=== PATIENT | female | born 1980 | race Caucasian/White ===

== ENCOUNTER 2018-07-20 09:36 | Day surgery (SDC) | payer OTHER ==
[2018-07-18 14:35] VITALS: BMI 31.6
[2018-07-20] MEDS ORDERED: ONDANSETRON 4 MG/2 ML VIAL IVPUSH PRN (10:45)
[2018-07-20] MEDS ORDERED: LACTATED RINGERS SOLUTION 1,000 ML IV SCH (10:45)
[2018-07-20] MEDS ORDERED: BUPIVACAINE HCL/PF 0.5% (5MG/ML) 10 ML VIAL ONE (11:06)
--- NOTE | 2018-07-20 11:59 | HP ---
History & Physical Update - History History: No Change - Physical Physical: No Change - Assessment Assessment: No Change - Plan Plan: No Change (H & P done on 07/13/18)
[2018-07-20] MEDS ORDERED: MIDAZOLAM HCL 2 MG/2 ML SINGLE DOSE VIAL ONE (12:00)
[2018-07-20] MEDS ORDERED: PROPOFOL 20 ML ONE (12:05)
[2018-07-20] MEDS ORDERED: ceFAZolin SODIUM 1 GM VIAL IVPB ONE (12:15)
[2018-07-20] MEDS ORDERED: LIDOCAINE HCL 2% JELLY (5 ML/TUBE) ONE (12:21)
[2018-07-20] MEDS ORDERED: DEXAMETHASONE SOD PHOSPHATE 4 MG/1 ML VIAL ONE (12:21)
[2018-07-20] MEDS ORDERED: LIDOCAINE HCL/PF 2% SDV 5ML VIAL ONE (12:21)
[2018-07-20] MEDS ORDERED: ceFAZolin SODIUM 1 GM VIAL ONE (12:21)
[2018-07-20] MEDS ORDERED: SODIUM CHLORIDE 0.9% P/F 10 ML VIAL IJ ONE (12:21)
[2018-07-20] MEDS ORDERED: BUPIVACAINE HCL/PF 0.5% (5MG/ML) 10 ML VIAL IJ ONE (12:44)
[2018-07-20] MEDS ORDERED: NEOSTIGMINE METHYLSULFATE 0.5 MG/ML - 10 ML MDV ONE (13:08)
[2018-07-20] MEDS ORDERED: GLYCOPYRROLATE 0.2 MG/1 ML VIAL ONE (13:08)
--- NOTE | 2018-07-20 13:22 | OP ---
Operative Note - Note: Operative Date: 07/20/18 Pre-Operative Diagnosis: Chronic cholecystitis with cholelithiasis Operation: Laparoscopic cholecystectomy Findings: GB with stones Post-Operative Diagnosis: Same as Pre-op Surgeon: Joe Almaraz Freight Caller: Dominga Johnson Anesthesia: General Specimens Removed: gallbladder Estimated Blood Loss (mls): 5 Operative Report Dictated: Yes
--- NOTE | 2018-07-20 14:06 | SURG ---
Surgery [employer] Officer Note [employer] Officer: Dominga Johnson PA-C Date of Service: 07/20/18 Diagnosis: Chronic cholecystitis with cholelithiasis Procedure: Laparoscopic cholecystectomy I was present for the entirety of the operative procedure. For further detail, please refer to operative report. Visit type - Case Type Case Type: Scheduled - Emergency Emergency Visit: No - New patient This patient is new to me today: Yes Date on this admission: 07/20/18
[2018-07-20] MEDS ORDERED: oxyCODONE HCL 5 MG TABLET PO PRN (16:35)
[2018-07-20 16:49] VITALS: TEMP 97.9
[2018-07-20] MEDS ORDERED: oxyCODONE HCL 5 MG TABLET ONE (17:22)
[2018-07-20] MEDS ORDERED: oxyCODONE HCL 5 MG TABLET PO ONE (17:45)
[2018-07-20 18:20] VITALS: BP 106/66; PULSE 60
--- NOTE | 2018-07-21 06:12 | OP ---
DATE OF OPERATION: 07/20/2018 PROCEDURE: Laparoscopic cholecystectomy. PREOPERATIVE DIAGNOSIS: Chronic cholecystitis with cholelithiasis. POSTOPERATIVE DIAGNOSIS: Chronic cholecystitis with cholelithiasis. SURGEON: Joe Almaraz MD TRAFFIC ASSISTANT: Dominga Johnson RPA ANESTHESIA: General endotracheal. FINDINGS AND PROCEDURE: This is a 37-year-old female who presents with chronic right upper quadrant pain radiating to the back aggravated by fatty meals. Preoperative ultrasound revealed patient with gallstones. On physical exam patient has no right upper quadrant tenderness at that time. So patient was advised elective laparoscopic cholecystectomy and consent was obtained after discussing the risks, benefits and alternatives to the procedure. Patient was brought to the operating room and placed in the supine position. General endotracheal anesthesia was administered. The abdomen was prepped and draped in the usual sterile fashion. Using 0.5% Marcaine local anesthesia was administered to the proposed incision sites. The peritoneal cavity was entered using the Optiview technique. via a 5-mm umbilical incision. Using a 5-mm, 30-degree scope inserted in a 5-mm optical port pneumoperitoneum was established. The peritoneal cavity was carefully inspected and was noted to be free of inadvertent injury. The patient was then placed in reverse Trendelenburg left side down position. An 11-mm port was inserted at the subxiphoid region and then two 5-mm ports were inserted at the right subcostal region at the midclavicular and anterior axillary lines. The fundus was identified and grasped and retracted superiorly. The infundibulum was grasped and retracted inferolaterally to expose the triangle of Calot. The visceral peritoneum covering the triangle was scored using the hook dissector connected to monopolar cautery. Further dissection using Maryland dissector was done until the cystic duct was identified as well as the cystic artery. A window was made using the Maryland dissector behind the cystic artery and at the area between the liver bed and the gallbladder wall to establish the critical view of safety. The cystic duct was clipped at 3 points followed by transection leaving 2 clips at the cystic duct stump. The cystic artery was branching before entering the gallbladder, was clipped at each 2 branches followed by transection using the hook dissector leaving 2 clips at both branches of the cystic artery stumps. The gallbladder was then resected from its bed in antegrade fashion using the hook dissector. After this was done the gallbladder was placed in an Endobag and extracted via the subxiphoid incision. The gallbladder bed was again inspected and was noted to be free of active bleeding. The small amount of blood in the Rodriguez pouch was suctioned. The pneumoperitoneum was evacuated and the ports were removed. Wounds were closed with subcuticular Biosyn 4-0 sutures reinforced with Dermabond. Patient was successfully extubated and transferred to the postanesthesia care unit in satisfactory condition. Estimated blood loss was about 5 mL. Wound class clean, contaminated. The patient received 2 g of Ancef prior to the start of the procedure. Jeremías [id number] MTDD
--- NOTE | 2018-07-24 17:04 | PATH ---
Surgical Pathology Report Patient Name: HEENA FISCHER [facility]. Rec. #: [id number] /Age/Gender: 1980 (Age: 37) / F Account: [id number] Location: [facility] SURGICAL Taken: 07/20/2018 Received: 07/20/2018 Reported: 07/24/2018 Physicians: Joe Almaraz M.D. Specimen(s) Received GALLBLADDER Clinical History Cholecystitis, cholelithiasis Final Diagnosis GALLBLADDER, CHOLECYSTECTOMY: CHRONIC CHOLECYSTITIS AND CHOLESTEROLOSIS. Electronically Signed Wes Falcon M.D. Gross Description Received in formalin, labeled "gallbladder," is a 7.0 x 2.6 x 1.5 cm. gallbladder with a 0.2 cm. in length portion of cystic duct attached. The outer surface is mitchell-pink with a focal defect and varies from smooth to shaggy. The lumen contains red blood. There are no choleliths identified within the lumen or the container. The mucosa is red with gold cholesterol stippling. The wall of the gallbladder averages 0.2 cm. in thickness. Parent Partner sections are submitted in one cassette. /07/20/2018 saudi07/20/2018
== END 2018-07-20 18:20 | disposition home or self-care (01) ==
LOC: JASU-SURG 09:36
PROVIDERS: ATTEND Surgery
PROC: 0FT44ZZ Resection of Gallbladder, Percutaneous Endoscopic Approach (ICD-10-PCS; principal; 2018-07-20 11:00)
DX: K80.44 Calculus of bile duct with chronic cholecystitis without obstruction (principal)
CPT/HCPCS: 84703; 88304-TC; 94760

== ENCOUNTER 2018-11-23 20:19 | Emergency (ER) | payer OTHER ==
--- NOTE | 2018-11-23 20:26 | PDOC ---
Rapid Medical Evaluation Chief Complaint: Pain Time Seen by Provider: 11/23/18 20:23 Medical Evaluation: Allergies Allergy/AdvReac Type Severity Reaction Status Date / Time No Known Allergies Allergy Verified 11/23/18 20:23 11/23/18 20:25 I have performed a brief in-person evaluation of this patient. The patient presents with a chief complaint of:L great toe pain and swelling x 3 days. No sig hx Pertinent physical exam findings:paronychia I have ordered the following:nothing The patient will proceed to the ED for further evaluation. Discharge Disposition - Diagnosis Paronychia - Referrals - Patient Instructions - Post Discharge Activity
[2018-11-23 20:27] VITALS: BP 106/68; PULSE 75; TEMP 97.9; BMI 29.9
--- NOTE | 2018-11-23 20:58 | PDOC ---
History of Present Illness - General Chief Complaint: Pain Stated Complaint: LEFT TOE PAIN Time Seen by Provider: 11/23/18 20:23 History Source: Patient - History of Present Illness Initial Comments: 11/23/18 20:49 38 year old female with left great toe swelling and pain for the last 3 days. patient reports that she cut her nail shorts. denies fever/ chills 11/23/18 21:31 Past History - Past Medical History Allergies/Adverse Reactions: Allergies Allergy/AdvReac Type Severity Reaction Status Date / Time No Known Allergies Allergy Verified 11/23/18 20:23 Home Medications: Ambulatory Orders Cephalexin Monohydrate [Keflex -] 250 mg PO Q8H #21 capsule 11/23/18 Sulfamethoxazole/Trimethoprim [Bactrim Ds -] 1 tab PO BID #14 tablet 11/23/18 Anemia: No Asthma: No Cancer: No Cardiac Disorders: No CVA: No COPD: No CHF: No Dementia: No Diabetes: No GI Disorders: Yes (gerd) Disorders: No HTN: No Hypercholesterolemia: No Liver Disease: No Seizures: No Thyroid Disease: No - Surgical History Abdominal Surgery: No Appendectomy: No Cardiac Surgery: No Cholecystectomy: Yes Lung Surgery: No Neurologic Surgery: No Orthopedic Surgery: No - Reproductive History (#): 5 Para: 4 Cervical CA: No Dysfunctional Uterine Bleeding: No Ectopic : No Endometrial CA: No Polycystic Ovaries: No Tubal Ligation: No Spontaneous : 1 - Suicide/Smoking/Psychosocial Hx Smoking History: Never smoked Have you smoked in the past 12 months: No Number of Cigarettes Smoked Daily: 0 Hx Alcohol Use: No Drug/Substance Use Hx: No Substance Use Type: None Hx Substance Use Treatment: No Review of Systems - Review of Systems Able to Perform ROS?: Yes Is the patient limited French proficient: No Constitutional: No: Symptoms Reported, See HPI, Chills, Diaphoresis, Fever, Loss of Appetite, Malaise, Night Sweats, Weakness, Weight Stable, Unintentional Wgt. Loss, Unexplained wgt Loss, Other Integumentary: Yes: Other (paronychia) *Physical Exam - Vital Signs Last Vital Signs Temp Pulse Resp BP Pulse Ox 97.9 F 75 18 106/68 97 11/23/18 20:24 11/23/18 20:24 11/23/18 20:24 11/23/18 20:24 11/23/18 20:24 - Physical Exam General Appearance: Yes: Appropriately Dressed Integumentary: positive: Erythema (left great toe swelling with pus drainage proximal to nail bed) Neurologic: positive: Fully Oriented, Alert, Normal Mood/Affect Moderate Sedation - Procedure Monitoring Vital Signs: Procedure Monitoring Vital Signs Temperature 97.9 F 11/23/18 20:24 Pulse Rate 75 11/23/18 20:24 Respiratory Rate 18 11/23/18 20:24 Blood Pressure 106/68 11/23/18 20:24 O2 Sat by Pulse Oximetry (%) 97 11/23/18 20:24 Procedures - Incision and Drainage I&D Site: Left: Other (left 'great toe paronychia) *DC/Admit/Observation/Transfer Diagnosis at time of Disposition: Paronychia - Discharge Dispostion Disposition: HOME - Prescriptions Prescriptions: Cephalexin Monohydrate [Keflex -] 250 mg PO Q8H #21 capsule Sulfamethoxazole/Trimethoprim [Bactrim Ds -] 1 tab PO BID #14 tablet - Referrals Referrals: Ben Ravi DPM [Staff Physician] - Call tomorrow - Patient Instructions Printed Discharge Instructions: DI for Wound Infection Additional Instructions: soak feet in warm salty water. take cephalexin and Bactrim as prescribed. follow up with your doctor as soon as possible for a wound check Additional Instructions: * Please call your personal physician to report your Emergency Department visit and to report your progress, if any. * If there is no improvement in symptoms in 2 days call your physician. * Return to the Emergency Department for any worsening symptoms. - Post Discharge Activity Forms/Work/School Notes: Back to Work
[2018-11-23] MEDS ORDERED: IBUPROFEN 600 MG TABLET (FP) PO ONE ×2 (21:08→21:11)
== END 2018-11-23 21:49 | disposition home or self-care (01) ==
LOC: JERFT 20:19
PROC: 0J9R0ZZ Drainage of Left Foot Subcutaneous Tissue and Fascia, Open Approach (ICD-10-PCS; principal; 2018-11-23)
DX: L03.032 Cellulitis of left toe (principal)
CPT/HCPCS: 10060; 99281-25

== ENCOUNTER 2020-01-28 22:23 | Emergency (ER) | payer OTHER ==
[2020-01-28 23:00] VITALS: TEMP 98; BMI 29.9
--- NOTE | 2020-01-29 00:32 | PDOC ---
History of Present Illness - General Chief Complaint: Sore Throat Stated Complaint: HEADACHE/BODYACHES History Source: Patient Exam Limitations: No Limitations - History of Present Illness Initial Comments: 01/29/20 00:23 Patient is a 39-year-old female with history of cholecystectomy here with complaint of sore throat x1 week associated with generalized headache and body ache. She has been taking acetaminophen for the pain with minimal relief of symptoms. Patient states that 1 week in December she had the same symptoms but it resolved and now it is back. States the pain is a throbbing 9/10 and having difficulty swallowing. She denies fever, chills, nausea, vomiting. PMD: Does not remember name PMHX: as above PSOCHX: neg etoh, drug, cig FamHX: None contributory ALL: NKDA GENERAL/CONSTITUTIONAL: [No fever or chills. No weakness. No weight change.] HEAD, EYES, EARS, NOSE AND THROAT: [No change in vision. No ear pain or discharge. (+) sore throat.] CARDIOVASCULAR: [No chest pain or shortness of breath.] RESPIRATORY: [No cough, wheezing, or hemoptysis.] GASTROINTESTINAL: [No nausea, vomiting, diarrhea or constipation. No rectal bleeding.] GENITOURINARY: [No dysuria, frequency, or change in urination.] MUSCULOSKELETAL: [No joint or muscle swelling or pain. No neck or back pain.] SKIN AND BREASTS: [No rash or easy bruising.] NEUROLOGIC: [(+) headache, (-) vertigo, loss of consciousness, or loss of sensation.] PSYCHIATRIC: [No depression or anxiety.] ENDOCRINE: [No increased thirst. No abnormal weight change.] HEMATOLOGIC/LYMPHATIC: [No anemia, easy bleeding, or history of blood clots.] ALLERGIC/IMMUNOLOGIC: [No hives or skin allergy. No latex allergy.] GENERAL: [The patient is awake, alert, and fully oriented, in mild acute distress.] HEAD: [Normal with no signs of trauma.] EYES: [Pupils equal, round and reactive to light, extraocular movements intact, sclera anicteric, conjunctiva clear.] ENT: [Ears normal, nares patent, erythematous oropharynx without exudates. Moist mucous membranes.] NECK: [Normal range of motion, supple without lymphadenopathy, JVD, or masses.] LUNGS: [Breath sounds equal, clear to auscultation bilaterally. No wheezes, and no crackles.] HEART: [Regular rate and rhythm, normal S1 and S2 without murmur, rub.] ABDOMEN: [Soft, nontender, normoactive bowel sounds. No guarding, no rebound. No masses.] EXTREMITIES: [Normal range of motion, no edema. No clubbing or cyanosis. No cords, erythema, or tenderness.] NEUROLOGICAL: [Cranial nerves II through XII grossly intact. Normal speech, normal gait.] PSYCH: [Normal mood, normal affect.] SKIN: [Warm, Dry, normal turgor, no rashes or lesions noted.] Past History - Past Medical History Allergies/Adverse Reactions: Allergies Allergy/AdvReac Type Severity Reaction Status Date / Time No Known Allergies Allergy Verified 01/28/20 23:00 Home Medications: Ambulatory Orders Cephalexin Monohydrate [Keflex -] 250 mg PO Q8H #21 capsule 11/23/18 Sulfamethoxazole/Trimethoprim [Bactrim Ds -] 1 tab PO BID #14 tablet 11/23/18 Anemia: No Asthma: No Cancer: No Cardiac Disorders: No CVA: No COPD: No CHF: No Dementia: No Diabetes: No GI Disorders: Yes (gerd) Disorders: No HTN: No Hypercholesterolemia: No Liver Disease: No Seizures: No Thyroid Disease: No - Surgical History Abdominal Surgery: No Appendectomy: No Cardiac Surgery: No Cholecystectomy: Yes Lung Surgery: No Neurologic Surgery: No Orthopedic Surgery: No - Reproductive History (#): 5 Para: 4 Cervical CA: No Dysfunctional Uterine Bleeding: No Ectopic : No Endometrial CA: No Polycystic Ovaries: No Tubal Ligation: No Spontaneous : 1 - Psycho Social/Smoking Cessation Hx Smoking History: Never smoked Have you smoked in the past 12 months: No Number of Cigarettes Smoked Daily: 0 Information on smoking cessation initiated: No Hx Alcohol Use: No Drug/Substance Use Hx: No Substance Use Type: None Hx Substance Use Treatment: No *Physical Exam - Vital Signs Last Vital Signs Temp Pulse Resp BP Pulse Ox 98.0 F 85 17 111/64 100 01/28/20 22:57 01/28/20 22:57 01/28/20 22:57 01/28/20 22:57 01/28/20 22:57 Medical Decision Making - Medical Decision Making 01/29/20 00:23 Patient is a 39-year-old female with history of cholecystectomy here with complaint of sore throat x1 week associated with generalized headache and body ache. She has been taking acetaminophen for the pain with minimal relief of symptoms. Patient states that 1 week in December she had the same symptoms but it resolved and now it is back. States the pain is a throbbing 9/10 and having difficulty swallowing. She denies fever, chills, nausea, vomiting. Symptoms consistent with pharyngitis will rule out strep. Patient also has a headache probably related to the sore throat. Rapid strep We will treat with Decadron, Reglan, Toradol, Benadryl Reassess 01/29/20 03:16 Rapid strep is positive will give patient Bicillin 1,200,000 units IM. Patient states she feels improved. I discussed the physical exam findings, ancillary test results and final diagnoses with the patient. I answered all of the patient's questions. The pat ient was satisfied with the care received and felt comfortable with the discharge plan and treatment plan. The Patient agrees to follow up with the primary care physician within 24-72 hours. Discharge - Discharge Information Problems reviewed: Yes Clinical Impression/Diagnosis: Strep pharyngitis Headache Qualifiers: Headache type: unspecified Headache chronicity pattern: unspecified pattern Intractability: not intractable Qualified Code(s): R51 - Headache Condition: Stable Disposition: HOME - Admission No - Follow up/Referral - Patient Discharge Instructions Patient Printed Discharge Instructions: DI for Strep Throat, DI for Headache Additional Instructions: Your Discharge Instructions: You must call primary care physician within 24 hours to arrange follow-up. Return to the Emergency Department with any new, persistent or worsening symptoms, for fever, chills, SOB, dizziness or any other concerning changes that may occur. - Post Discharge Activity
[2020-01-29] MEDS ORDERED: METOCLOPRAMIDE HCL INJECTION 10 MG/2 ML VIAL IVPUSH ONE (00:36)
[2020-01-29] MEDS ORDERED: SODIUM CHLORIDE 0.9% 500 ML INFUS.BAG IV ONE (00:36)
[2020-01-29] MEDS ORDERED: KETOROLAC TROMETHAMINE 30 MG/1 ML VIAL IVPUSH ONE (00:36)
[2020-01-29] MEDS ORDERED: DEXAMETHASONE SOD PHOSPHATE 10 MG/1 ML VIAL IVPUSH ONE (00:36)
[2020-01-29] MEDS ORDERED: METOCLOPRAMIDE HCL INJECTION 10 MG/2 ML VIAL ONE (01:24)
[2020-01-29] MEDS ORDERED: DEXAMETHASONE SOD PHOSPHATE 10 MG/1 ML VIAL ONE (01:24)
[2020-01-29] MEDS ORDERED: KETOROLAC TROMETHAMINE 30 MG/1 ML VIAL ONE (01:25)
--- NOTE | 2020-01-29 02:02 | PDOC ---
*Physical Exam - Vital Signs Last Vital Signs Temp Pulse Resp BP Pulse Ox 98.0 F 85 17 111/64 100 01/28/20 22:57 01/28/20 22:57 01/28/20 22:57 01/28/20 22:57 01/28/20 22:57 ED Treatment Course - Medications Given in the ED: ED Medications Discontinued Medications Generic Name Dose Route Start Last Admin Trade Name Nick PRN Reason Stop Dose Admin Dexamethasone Sodium Phosphate 10 mg 01/29/20 00:36 01/29/20 01:35 Decadron Injection - IVPUSH 01/29/20 00:37 10 mg ONCE ONE Administration Diphenhydramine HCl 25 mg 01/29/20 00:36 01/29/20 01:35 Benadryl Injection - IVPB 01/29/20 00:37 25 mg ONCE ONE Administration Ketorolac Tromethamine 30 mg 01/29/20 00:36 01/29/20 01:35 Toradol Injection - IVPUSH 01/29/20 00:37 30 mg ONCE ONE Administration Metoclopramide HCl 10 mg 01/29/20 00:36 01/29/20 01:35 Reglan Injection - IVPUSH 01/29/20 00:37 10 mg ONCE ONE Administration Sodium Chloride 1,000 ml 01/29/20 00:36 01/29/20 01:35 Normal Saline - IV 01/29/20 00:37 1,000 ml ONCE ONE Administration Medical Decision Making - Medical Decision Making 01/29/20 02:02 Patient seen by the advanced practice provider under my supervision. Ancillary testing reviewed as necessary. I agree with plan as outlined by the advanced practice provider. Discharge - Discharge Information Problems reviewed: Yes Clinical Impression/Diagnosis: Strep pharyngitis Headache Qualifiers: Headache type: unspecified Headache chronicity pattern: unspecified pattern Intractability: not intractable Qualified Code(s): R51 - Headache Condition: Stable Disposition: HOME - Follow up/Referral - Patient Discharge Instructions Patient Printed Discharge Instructions: DI for Strep Throat, DI for Headache Additional Instructions: Your Discharge Instructions: You must call primary care physician within 24 hours to arrange follow-up. Return to the Emergency Department with any new, persistent or worsening symptoms, for fever, chills, SOB, dizziness or any other concerning changes that may occur. - Post Discharge Activity
[2020-01-29] MEDS ORDERED: PENICILLIN G BENZATHINE 1,200,000 UNIT/2 ML PFS IM ONE ×2 (03:15→03:28)
[2020-01-29 03:42] VITALS: BP 110/74; PULSE 78
== END 2020-01-29 03:41 | disposition home or self-care (01) ==
LOC: JER 22:23
PROC: 3E02329 Introduction of Other Anti-infective into Muscle, Percutaneous Approach (ICD-10-PCS; principal; 2020-01-28)
PROC: 3E033GC Introduction of Other Therapeutic Substance into Peripheral Vein, Percutaneous Approach (ICD-10-PCS; 2020-01-28)
PROC: 3E033GC Introduction of Other Therapeutic Substance into Peripheral Vein, Percutaneous Approach (ICD-10-PCS; 2020-01-28)
PROC: 3E0333Z Introduction of Anti-inflammatory into Peripheral Vein, Percutaneous Approach (ICD-10-PCS; 2020-01-28)
PROC: 3E0333Z Introduction of Anti-inflammatory into Peripheral Vein, Percutaneous Approach (ICD-10-PCS; 2020-01-28)
DX: J02.0 Streptococcal pharyngitis (principal); B95.0 Streptococcus, group A, as the cause of diseases classified elsewhere; Z90.49 Acquired absence of other specified parts of digestive tract
CPT/HCPCS: 87880; 96372; 96374; 96375; 99284-25; J1100

== ENCOUNTER 2021-08-05 20:10 | Emergency (ER) | payer OTHER ==
[2021-08-05 20:27] VITALS: BP 101/64; PULSE 67; TEMP 98.4; BMI 29.9
[2021-08-05] MEDS ORDERED: METHOCARBAMOL 500 MG TABLET PO ONE (20:58)
[2021-08-05] MEDS ORDERED: KETOROLAC TROMETHAMINE 60 MG/2 ML VIAL IM ONE (20:58)
[2021-08-05] MEDS ORDERED: KETOROLAC TROMETHAMINE 60 MG/2 ML VIAL ONE (21:13)
[2021-08-05] MEDS ORDERED: METHOCARBAMOL 500 MG TABLET ONE (21:16)
== END 2021-08-05 23:00 | disposition home or self-care (01) ==
LOC: JER 20:10
PROC: 3E0233Z Introduction of Anti-inflammatory into Muscle, Percutaneous Approach (ICD-10-PCS; principal; 2021-08-05)
DX: M54.42 Lumbago with sciatica, left side (principal)
CPT/HCPCS: 72100-TC-FY; 96372; 99284-25

== ENCOUNTER 2024-04-01 18:06 | Day surgery (SDC) | payer OTHER ==
[2024-04-01] MEDS ORDERED: ONDANSETRON 4 MG/2 ML VIAL ONE ×2 (19:13→21:32)
[2024-04-01] MEDS ORDERED: morphine SULFATE 4 MG/ML VIAL ONE (19:13)
[2024-04-01] MEDS: morphine CARPU-JECT 4 MG/1 ML DISP.SYRIN IVPUSH ONE ×2 (19:37→23:33)
[2024-04-01 19:38] LABS: BASO % 0.4 % (0-2.0); EOS % 0.9 % (0-4.5); HEMATOCRIT 41.6 % (32.4-45.2); HEMOGLOBIN 14.2 GM/dL (10.7-15.3); LYMPH % 18.5 % (8-40); MCH 29.8 pg (25.7-33.7); MCHC 34.2 g/dl (32.0-36.0); MEAN CELL VOLUME 87.1 fl (80-96); MEAN PLT VOLUME 8.4 fl (7.5-11.1); MONO % 7.6 % (3.8-10.2); NEUT % 72.6 % (42.8-82.8); PLATELET COUNT 212 10^3/uL (134-434); RBC 4.77 M/mm3 (3.60-5.2); RDW 13.5 % (11.6-15.6); WHITE BLOOD COUNT 11.1 K/mm3 (4.0-10.0)
[2024-04-01] MEDS: LACTATED RINGERS SOLUTION 1000 ML INFUS.BAG IV ONE (19:38)
[2024-04-01] MEDS: ONDANSETRON 4 MG/2 ML VIAL IVPUSH ONE ×2 (19:38→21:38)
[2024-04-01 19:46] LABS: INR 1.03 (0.83-1.09); PROTHROMBIN TIME (PATIENT) 11.6 SEC (9.7-13.0)
[2024-04-01 19:49] LABS: ACTIVATED PTT 37.4 SECONDS (25.2-36.5)
[2024-04-01 19:53] LABS: POTASSIUM 3.9 mmol/L (3.5-5.1)
[2024-04-01 19:55] LABS: CALCIUM 9.3 mg/dL (8.5-10.1)
[2024-04-01 19:56] LABS: ALBUMIN 3.8 g/dl (3.4-5.0); BLOOD UREA NITROGEN 12.2 mg/dL (7-18)
[2024-04-01 19:59] LABS: CREATININE 0.8 mg/dL (0.55-1.3)
[2024-04-01 20:00] LABS: BILIRUBIN,TOTAL 0.5 mg/dL (0.2-1); TOT PROT 7.8 g/dl (6.4-8.2)
[2024-04-01] MEDS ORDERED: fentaNYL CITRATE 250 MCG/5 ML VIAL ONE ×3 (20:01→22:38)
[2024-04-01 21:45] LABS: URINE COLOR YELLOW
[2024-04-01 21:46] LABS: PH,URINE 5.5 (5.0-8.0); URINE APPEARANCE CLEAR; URINE BILIRUBIN NEGATIVE (NEGATIVE); URINE GLUCOSE (UA) 250 (NEGATIVE); URINE KETONE NEGATIVE (NEGATIVE); URINE LEUK ESTERASE NEGATIVE (NEGATIVE); URINE NITRITE NEGATIVE (NEGATIVE); URINE PROTEIN NEGATIVE (NEGATIVE); URINE UROBILINOGEN 0.2 mg/dL (0.2-1.0)
[2024-04-01] MEDS ORDERED: ONDANSETRON 4 MG/2 ML VIAL IVPUSH PRN (23:25)
[2024-04-01] MEDS ORDERED: ACETAMINOPHEN 325 MG TABLET (FP) PO PRN (23:25)
[2024-04-01] MEDS ORDERED: KETOROLAC TROMETHAMINE 15 MG/ML VIAL IVPUSH PRN (23:25)
[2024-04-01] MEDS ORDERED: PROPOFOL 20 ML ONE (23:45)
[2024-04-01] MEDS ORDERED: HYDROmorphone HCl 2 MG/ML VIAL ONE (23:45)
[2024-04-01] MEDS ORDERED: ROCURONIUM BROMIDE 50 MG/5 ML SYRINGE ONE (23:45)
[2024-04-01] MEDS ORDERED: FENTANYL CITRATE/PF 50 MCG/ML VIAL ONE (23:45)
[2024-04-02] MEDS ORDERED: FENTANYL CITRATE/PF 50 MCG/ML VIAL IVPUSH PRN (00:07)
[2024-04-02] MEDS ORDERED: ONDANSETRON 4 MG/2 ML VIAL IVPUSH PRN ×2 (00:07→02:50)
[2024-04-02] MEDS ORDERED: BUPIVACAINE HCL/PF 0.25% (2.5MG/ML) 10 ML VIAL ONE (00:13)
[2024-04-02] MEDS ORDERED: LACTATED RINGERS SOLUTION 1,000 ML IV SCH (00:15)
[2024-04-02] MEDS: ceFAZolin SODIUM 1 GM VIAL IVPB ONE (00:30)
[2024-04-02] MEDS: BUPIVACAINE HCL/PF 0.25% (2.5MG/ML) 10 ML VIAL IJ ONE (00:45)
[2024-04-02] MEDS ORDERED: LACTATED RINGERS SOLUTION 1,000 ML/1,000 ML INFUS.BAG IV SCH (00:45)
[2024-04-02] MEDS ORDERED: NEOSTIGMINE METHYLSULFATE 0.5 MG/1 ML - 10 ML MDV ONE (02:09)
[2024-04-02] MEDS ORDERED: oxyCODONE HCL 5 MG TABLET PO PRN (02:41)
[2024-04-02] MEDS ORDERED: FENTANYL CITRATE/PF 50 MCG/ML VIAL ONE (02:45)
[2024-04-02 05:33] VITALS: BMI 30.7
[2024-04-02] MEDS: ACETAMINOPHEN 500 MG TABLET (FP) PO SCH (05:45)
[2024-04-02] MEDS: LACTATED RINGERS SOLUTION 1,000 ML IV SCH (05:47)
[2024-04-02] MEDS: ACETAMINOPHEN 1000 MG/100 ML BAG IVPB ONE (10:56)
[2024-04-02] MEDS: KETOROLAC TROMETHAMINE 15 MG/ML VIAL IVPUSH ONE (10:57)
[2024-04-02 12:58] LABS: BASO % 0.4 % (0-2.0); EOS % 1.4 % (0-4.5); HEMATOCRIT 37.4 % (32.4-45.2); HEMOGLOBIN 12.8 GM/dL (10.7-15.3); LYMPH % 20.8 % (8-40); MCH 29.7 pg (25.7-33.7); MCHC 34.2 g/dl (32.0-36.0); MEAN CELL VOLUME 86.9 fl (80-96); MEAN PLT VOLUME 8.8 fl (7.5-11.1); MONO % 8.7 % (3.8-10.2); NEUT % 68.7 % (42.8-82.8); PLATELET COUNT 180 10^3/uL (134-434); RBC 4.31 M/mm3 (3.60-5.2); RDW 13.3 % (11.6-15.6); WHITE BLOOD COUNT 7.9 K/mm3 (4.0-10.0)
[2024-04-02 13:09] LABS: POTASSIUM 3.9 mmol/L (3.5-5.1)
[2024-04-02 13:11] LABS: CALCIUM 8.4 mg/dL (8.5-10.1)
[2024-04-02 13:12] LABS: BLOOD UREA NITROGEN 6.9 mg/dL (7-18)
[2024-04-02 13:15] LABS: CREATININE 0.6 mg/dL (0.55-1.3)
[2024-04-02 13:39] VITALS: BP 111/76; PULSE 70; RESP 18; TEMP 98.2
[2024-04-02] MEDS ORDERED: IBUPROFEN 600 MG TABLET (FP) PO SCH (15:00)
[2024-04-02] MEDS: BENZOCAINE/MENTH/CETYLPYRD CL 1 EACH LOZENGE MM PRN (15:44)
== END 2024-04-02 16:16 | disposition home or self-care (01) ==
LOC: JER 18:06 → UNDOADMOB 22:36 → JERBED 22:36 → J8W 04-02 04:25 → JERBED 04-02 04:25 → JASUSAT 04-02 09:57 → J8W 04-02 10:06 → JASUSAT 04-02 16:16
PROVIDERS: ATTEND Nurse Practitioner Family
PROC: 3E033NZ Introduction of Analgesics, Hypnotics, Sedatives into Peripheral Vein, Percutaneous Approach (ICD-10-PCS; 2024-04-01)
PROC: 3E033GC Introduction of Other Therapeutic Substance into Peripheral Vein, Percutaneous Approach (ICD-10-PCS; 2024-04-01)
PROC: 3E033NZ Introduction of Analgesics, Hypnotics, Sedatives into Peripheral Vein, Percutaneous Approach (ICD-10-PCS; 2024-04-01)
PROC: 3E033NZ Introduction of Analgesics, Hypnotics, Sedatives into Peripheral Vein, Percutaneous Approach (ICD-10-PCS; 2024-04-01)
PROC: 3E033GC Introduction of Other Therapeutic Substance into Peripheral Vein, Percutaneous Approach (ICD-10-PCS; 2024-04-01)
PROC: 3E033NZ Introduction of Analgesics, Hypnotics, Sedatives into Peripheral Vein, Percutaneous Approach (ICD-10-PCS; principal; 2024-04-01 23:00)
PROC: 3E033NZ Introduction of Analgesics, Hypnotics, Sedatives into Peripheral Vein, Percutaneous Approach (ICD-10-PCS; 2024-04-02)
PROC: 3E0333Z Introduction of Anti-inflammatory into Peripheral Vein, Percutaneous Approach (ICD-10-PCS; 2024-04-02)
DX: R10.32 Left lower quadrant pain (principal); K40.30 Unilateral inguinal hernia, with obstruction, without gangrene, not specified as recurrent; R11.0 Nausea
CPT/HCPCS: 36415; 74177-TC; 80048; 80053; 81003; 83605; 83690; 83735; 84703; 85025; 85610; 85730; 86850; 86900; 86901; 87086; 93005; 93010; 94760; 99285-25; C1781; J0131; Q9967